=== PATIENT | male | born 1955 | race Caucasian/White ===

== ENCOUNTER 2019-11-02 07:10 | Outpatient (CLI) | payer OTHER, SELFPAY ==
[2019-11-02 07:58] LABS: Hematocrit 42.4 % (42.0-52.0); Hemoglobin 14.3 g/dL (14.0-18.0)
[2019-11-02 08:07] LABS: Hemoglobin A1C 13.5 % (<5.7)
[2019-11-02 08:09] LABS: Alanine Aminotransferase 22 U/L (4-50); Albumin Level 4.1 g/dL (3.5-5.1); Alkaline Phosphatase 107 U/L (38-126); Aspartate Amino Transferase 22 U/L (17-59); Bilirubin,Total 0.5 mg/dL (0.2-1.3); Blood Urea Nitrogen 11 mg/dL (9-20); Calcium 9.3 mg/dL (8.4-10.2); Carbon Dioxide 29 mmol/L (22-30); Chloride 101 mmol/L (98-107); Cholesterol 152 mg/dL (0-200); Estimated Glomerular Filt Rate > 60; Glucose 290 mg/dL (75-110); HDL Direct 26 mg/dL; Sodium 135 mmol/L (137-145); Triglycerides 141 mg/dL (<150)
[2019-11-02 08:19] LABS: LDL Cholesterol Direct 84 mg/dL
[2019-11-02 09:30] LABS: Creatinine Urine 133.1 mg/dL
[2019-11-02 09:34] LABS: MALB Creatinine Ratio 17.3 mg/g (0-30)
== END 2019-11-02 07:11 | disposition home or self-care (01) ==
PROVIDERS: PCP Internal Medicine; Visit Provider Internal Medicine
DX: E11.9 Type 2 diabetes mellitus without complications (principal); E78.5 Hyperlipidemia, unspecified; D64.9 Anemia, unspecified; I10 Essential (primary) hypertension; Z51.81 Encounter for therapeutic drug level monitoring; Z79.899 Other long term (current) drug therapy
CPT/HCPCS: 36415; 80053; 80061; 82043; 83036; 85014; 85018

== ENCOUNTER 2020-03-09 07:36 | Outpatient (CLI) | payer OTHER, SELFPAY ==
[2020-03-10 03:46] LABS: Alanine Aminotransferase 27 U/L (4-50); Alkaline Phosphatase 100 U/L (38-126); Anion Gap 9 mmol/L (8-16); Aspartate Amino Transferase 23 U/L (17-59); Bilirubin,Total 0.5 mg/dL (0.2-1.3); Blood Urea Nitrogen 11 mg/dL (9-20); Calcium 9.6 mg/dL (8.4-10.2); Carbon Dioxide 28 mmol/L (22-30); Chloride 100 mmol/L (98-107); Cholesterol 144 mg/dL (0-200); Estimated Glomerular Filt Rate > 60; Glucose 301 mg/dL (75-110); HDL Direct 26 mg/dL; Potassium 4.4 mmol/L (3.4-5.0); Sodium 137 mmol/L (137-145); Triglycerides 197 mg/dL (<150)
[2020-03-10 03:57] LABS: LDL Cholesterol Direct 80 mg/dL
== END 2020-03-09 07:37 | disposition home or self-care (01) ==
PROVIDERS: PCP Internal Medicine; Visit Provider Nurse Practitioner
DX: E78.2 Mixed hyperlipidemia (principal); E11.65 Type 2 diabetes mellitus with hyperglycemia
CPT/HCPCS: 36415; 80053; 80061; 83036

== ENCOUNTER 2020-06-29 07:23 | Outpatient (CLI) | payer OTHER, SELFPAY ==
[2020-06-29 08:00] LABS: Anion Gap 6 mmol/L (8-16); Blood Urea Nitrogen 15 mg/dL (9-20); Calcium 9.2 mg/dL (8.4-10.2); Carbon Dioxide 29 mmol/L (22-30); Chloride 104 mmol/L (98-107); Estimated Glomerular Filt Rate > 60; Glucose 149 mg/dL (75-110); Potassium 4.4 mmol/L (3.4-5.0); Sodium 139 mmol/L (137-145)
[2020-06-29 12:52] LABS: Cholesterol 121 mg/dL (0-200); HDL Direct 28 mg/dL; Triglycerides 94 mg/dL (<150)
[2020-06-29 13:01] LABS: LDL Cholesterol Direct 70 mg/dL
[2020-06-29 13:19] LABS: Prostate Specific Antigen 1.1 ng/mL (< OR = 4.0)
[2020-06-29 13:30] LABS: Alanine Aminotransferase 32 U/L (4-50); Albumin Level 4.3 g/dL (3.5-5.1); Alkaline Phosphatase 76 U/L (38-126); Aspartate Amino Transferase 35 U/L (17-59); Bilirubin,Total 0.5 mg/dL (0.2-1.3)
[2020-07-01 06:09] LABS: C-Peptide 0.99 ng/mL (0.80-3.85)
[2020-07-01 21:29] LABS: Glutamic acid decarboxylase AA <5 IU/mL (<5)
== END 2020-06-29 07:24 | disposition home or self-care (01) ==
PROVIDERS: PCP Internal Medicine; Referring Provider Internal Medicine; Visit Provider Internal Medicine Endocrinology, Diabetes & Metabolism
DX: E11.65 Type 2 diabetes mellitus with hyperglycemia (principal); E78.5 Hyperlipidemia, unspecified; Z12.5 Encounter for screening for malignant neoplasm of prostate; Z51.81 Encounter for therapeutic drug level monitoring; Z79.899 Other long term (current) drug therapy
CPT/HCPCS: 36415; 80048; 80061; 80076; 82607; 84153; 84681; 86341; G0103

== ENCOUNTER 2020-08-03 07:57 | Outpatient (CLI) | payer OTHER, SELFPAY ==
[2020-08-03 08:44] LABS: Hemoglobin A1C 7.6 % (<5.7)
== END 2020-08-03 07:58 | disposition home or self-care (01) ==
LOC: ANHLAB 07:59
PROVIDERS: PCP Internal Medicine; Visit Provider Internal Medicine
DX: E11.65 Type 2 diabetes mellitus with hyperglycemia (principal); E78.5 Hyperlipidemia, unspecified; Z12.5 Encounter for screening for malignant neoplasm of prostate; Z51.81 Encounter for therapeutic drug level monitoring; Z79.899 Other long term (current) drug therapy
CPT/HCPCS: 36415; 83036

== ENCOUNTER 2020-09-28 09:18 | Outpatient (RCR) | payer OTHER, SELFPAY | END 2020-12-15 11:59 | disposition home or self-care (01) | LOC: ANHDMC 09:18 | PROVIDERS: PCP Internal Medicine; Visit Provider Internal Medicine Endocrinology, Diabetes & Metabolism | DX: E11.9 Type 2 diabetes mellitus without complications (principal); Z71.89 Other specified counseling | CPT/HCPCS: G0108 ==

== ENCOUNTER 2020-11-30 08:05 | Outpatient (CLI) | payer OTHER, SELFPAY ==
[2020-11-30 08:42] LABS: Basophils Percent Auto 0.5 % (0.2-1.2); Eosinophils Absolute Auto 0.2 K/mm3 (0-0.3); Eosinophils Percent Auto 2.5 % (0-4.4); Hematocrit 43.5 % (42.0-52.0); Hemoglobin 14.4 g/dL (14.0-18.0); Immature Granulocyte Absolute 0.03 K/mm3 (0.00-0.031); Immature Granulocyte Percent A 0.4 % (0-0.5); Lymphocytes Absolute Auto 1.93 K/mm3 (0.9-3.2); Lymphocytes Percent Auto 24.5 % (18.3-44.2); Mean Corpuscular HGB Conc 33.1 g/dl (32-36); Mean Corpuscular Hemoglobin 29.2 pg (26-34); Mean Corpuscular Volume 88.2 fl (80-100); Mean Platelet Volume 10.4 fl (7.4-10.4); Monocytes Absolute Auto 0.8 K/mm3 (0.1-0.6); Monocytes Percent Auto 10.2 % (2.6-8.5); Neutrophils Absolute Auto 4.9 K/mm3 (1.3-6.7); Neutrophils Percent Auto 61.9 % (45.5-73.1); Platelet Count Result 243 k/mm3 (150-375); Red Blood Count 4.93 M/mm3 (4.6-6.20); Red Cell Distribution Width 13.3 % (11.5-14.5); White Blood Count 7.9 K/mm3 (4.5-10.0)
[2020-11-30 08:44] LABS: Alanine Aminotransferase 29 U/L (4-50); Albumin Level 4.2 g/dL (3.5-5.1); Alkaline Phosphatase 78 U/L (38-126); Anion Gap 8 mmol/L (8-16); Aspartate Amino Transferase 30 U/L (17-59); Bilirubin,Total 0.6 mg/dL (0.2-1.3); Blood Urea Nitrogen 13 mg/dL (9-20); Calcium 9.6 mg/dL (8.4-10.2); Carbon Dioxide 26 mmol/L (22-30); Chloride 105 mmol/L (98-107); Cholesterol 155 mg/dL (0-200); Estimated Glomerular Filt Rate > 60; Glucose 155 mg/dL (75-110); HDL Direct 31 mg/dL; Potassium 4.3 mmol/L (3.4-5.0); Sodium 139 mmol/L (137-145); Triglycerides 160 mg/dL (<150)
[2020-11-30 08:56] LABS: LDL Cholesterol Direct 73 mg/dL
[2020-11-30 09:00] LABS: Hemoglobin A1C 7.8 % (<5.7)
[2020-11-30 10:04] LABS: Creatinine Urine 201.5 mg/dL
[2020-11-30 10:09] LABS: MALB Creatinine Ratio 6.7 mg/g (0-30); Microalbumin Urine Random 13.6 mg/L (0-16.7)
== END 2020-11-30 08:06 | disposition home or self-care (01) ==
LOC: ANHLAB 08:08
PROVIDERS: PCP Internal Medicine; Visit Provider Nurse Practitioner
DX: E11.9 Type 2 diabetes mellitus without complications (principal); D64.9 Anemia, unspecified; E78.2 Mixed hyperlipidemia
CPT/HCPCS: 36415; 80053; 80061; 82043; 83036; 85025

== ENCOUNTER 2021-06-11 07:15 | Outpatient (CLI) | payer OTHER, SELFPAY ==
[2021-06-11 07:36] LABS: Alanine Aminotransferase 35 U/L (4-50); Albumin Level 4.1 g/dL (3.5-5.1); Alkaline Phosphatase 91 U/L (38-126); Anion Gap 7 mmol/L (8-16); Aspartate Amino Transferase 33 U/L (17-59); Bilirubin,Total 0.4 mg/dL (0.2-1.3); Blood Urea Nitrogen 11 mg/dL (9-20); Calcium 9.2 mg/dL (8.4-10.2); Carbon Dioxide 26 mmol/L (22-30); Chloride 104 mmol/L (98-107); Cholesterol 130 mg/dL (0-200); Estimated Glomerular Filt Rate > 60; Glucose 147 mg/dL (65-110); HDL Direct 26 mg/dL; Potassium 3.9 mmol/L (3.4-5.0); Sodium 137 mmol/L (137-145); Triglycerides 181 mg/dL (<150)
[2021-06-11 07:38] LABS: Hemoglobin A1C 10.2 % (<5.7)
[2021-06-11 07:48] LABS: LDL Cholesterol Direct 51 mg/dL
[2021-06-11 08:09] LABS: Prostate Specific Antigen 1.7 ng/mL (< OR = 4.0)
== END 2021-06-11 07:16 | disposition home or self-care (01) ==
PROVIDERS: PCP Internal Medicine; Visit Provider Nurse Practitioner
DX: E11.65 Type 2 diabetes mellitus with hyperglycemia (principal); Z79.4 Long term (current) use of insulin; N40.0 Benign prostatic hyperplasia without lower urinary tract symptoms; E78.2 Mixed hyperlipidemia
CPT/HCPCS: 36415; 80053; 80061; 83036; 84153

== ENCOUNTER 2022-02-11 07:22 | Outpatient (CLI) | payer MEDICARE, SELFPAY ==
[2022-02-11 09:27] LABS: Alanine Aminotransferase 24 U/L (6-50); Albumin Level 4.2 g/dL (3.5-5.1); Alkaline Phosphatase 93 U/L (38-126); Anion Gap 11 mmol/L (8-16); Aspartate Amino Transferase 26 U/L (17-59); Bilirubin,Total 0.8 mg/dL (0.2-1.3); Blood Urea Nitrogen 15 mg/dL (9-20); Carbon Dioxide 27 mmol/L (22-30); Chloride 101 mmol/L (98-107); Cholesterol 161 mg/dL (0-200); Estimated Glomerular Filt Rate > 60; Glucose 119 mg/dL (65-110); HDL Direct 33 mg/dL; Potassium 3.9 mmol/L (3.4-5.0); Sodium 139 mmol/L (137-145); Triglycerides 152 mg/dL (<150)
[2022-02-11 09:38] LABS: LDL Cholesterol Direct 78 mg/dL
== END 2022-02-11 07:23 | disposition home or self-care (01) ==
PROVIDERS: PCP Internal Medicine; Visit Provider Nurse Practitioner
DX: E78.5 Hyperlipidemia, unspecified (principal)
CPT/HCPCS: 36415; 80053; 80061

== ENCOUNTER 2022-08-17 07:24 | Outpatient (CLI) | payer MEDICARE, SELFPAY ==
[2022-08-17 08:19] LABS: Alanine Aminotransferase 28 U/L (6-50); Albumin Level 4.3 g/dL (3.5-5.1); Alkaline Phosphatase 91 U/L (38-126); Anion Gap 7 mmol/L (8-16); Aspartate Amino Transferase 32 U/L (17-59); Bilirubin,Total 0.7 mg/dL (0.2-1.3); Blood Urea Nitrogen 16 mg/dL (9-20); Calcium 9.2 mg/dL (8.4-10.2); Carbon Dioxide 26 mmol/L (22-30); Chloride 107 mmol/L (98-107); Cholesterol 152 mg/dL (0-200); Estimated Glomerular Filt Rate > 60; Glucose 134 mg/dL (65-110); HDL Direct 28 mg/dL; Sodium 140 mmol/L (137-145); Triglycerides 162 mg/dL (<150)
[2022-08-17 08:30] LABS: LDL Cholesterol Direct 86 mg/dL
[2022-08-17 08:47] LABS: Prostate Specific Antigen 1.7 ng/mL (< OR = 4.0)
== END 2022-08-17 07:25 | disposition home or self-care (01) ==
LOC: ANHLAB 07:28
PROVIDERS: PCP Nurse Practitioner Family; Visit Provider Nurse Practitioner
DX: Z12.5 Encounter for screening for malignant neoplasm of prostate (principal); E78.5 Hyperlipidemia, unspecified
CPT/HCPCS: 36415; 80053; 80061; 84153; G0103

== ENCOUNTER 2023-02-28 07:16 | Outpatient (CLI) | payer MEDICARE, SELFPAY ==
[2023-02-28 07:41] LABS: Alanine Aminotransferase 29 U/L (6-50); Albumin Level 4.3 g/dL (3.5-5.1); Alkaline Phosphatase 74 U/L (38-126); Anion Gap 9 mmol/L (8-16); Aspartate Amino Transferase 35 U/L (17-59); Bilirubin,Total 0.6 mg/dL (0.2-1.3); Blood Urea Nitrogen 17 mg/dL (9-20); Calcium 9.2 mg/dL (8.4-10.2); Carbon Dioxide 27 mmol/L (22-30); Chloride 103 mmol/L (98-107); Cholesterol 146 mg/dL (0-200); Estimated Glomerular Filt Rate > 60; Glucose 90 mg/dL (65-110); HDL Direct 33 mg/dL; Potassium 3.9 mmol/L (3.4-5.0); Sodium 139 mmol/L (137-145); Triglycerides 91 mg/dL (<150)
[2023-02-28 07:53] LABS: LDL Cholesterol Direct 80 mg/dL
== END 2023-02-28 07:17 | disposition home or self-care (01) ==
PROVIDERS: PCP Family Medicine; Visit Provider Nurse Practitioner
DX: E78.5 Hyperlipidemia, unspecified (principal)
CPT/HCPCS: 36415; 80053; 80061

== ENCOUNTER 2023-08-15 08:35 | Outpatient (CLI) | payer MEDICARE, SELFPAY ==
[2023-08-15 08:53] LABS: Hematocrit 45.9 % (42.0-52.0); Hemoglobin 15.2 g/dL (14.0-18.0); Mean Corpuscular HGB Conc 33.1 g/dl (32-36); Mean Corpuscular Hemoglobin 29.8 pg (26-34); Mean Platelet Volume 10.3 fl (7.4-10.4); Platelet Count Result 230 k/mm3 (150-375); Red Cell Distribution Width 13.3 % (11.5-14.5); White Blood Count 7.3 K/mm3 (4.5-10.0)
[2023-08-15 09:05] LABS: Alanine Aminotransferase 36 U/L (6-50); Albumin Level 4.6 g/dL (3.5-5.1); Alkaline Phosphatase 79 U/L (38-126); Anion Gap 9 mmol/L (8-16); Aspartate Amino Transferase 31 U/L (17-59); Bilirubin,Total 0.5 mg/dL (0.2-1.3); Blood Urea Nitrogen 14 mg/dL (9-20); Carbon Dioxide 24 mmol/L (22-30); Chloride 106 mmol/L (98-107); Cholesterol 142 mg/dL (0-200); Estimated Glomerular Filt Rate > 60; Glucose 140 mg/dL (65-110); HDL Direct 32 mg/dL; Potassium 4.1 mmol/L (3.4-5.0); Sodium 139 mmol/L (137-145); Triglycerides 133 mg/dL (<150)
[2023-08-15 09:24] LABS: LDL Cholesterol Direct 83 mg/dL
[2023-08-15 09:34] LABS: Prostate Specific Antigen 2.2 ng/mL (< OR = 4.0)
== END 2023-08-15 08:36 | disposition home or self-care (01) ==
PROVIDERS: PCP Family Medicine; Visit Provider Family Medicine
DX: D64.9 Anemia, unspecified (principal); E11.65 Type 2 diabetes mellitus with hyperglycemia; E78.2 Mixed hyperlipidemia; I10 Essential (primary) hypertension; N40.0 Benign prostatic hyperplasia without lower urinary tract symptoms; Z79.4 Long term (current) use of insulin; Z85.828 Personal history of other malignant neoplasm of skin; Z98.890 Other specified postprocedural states; Z12.5 Encounter for screening for malignant neoplasm of prostate; Z79.1 Long term (current) use of non-steroidal anti-inflammatories (NSAID)
CPT/HCPCS: 36415; 80053; 80061; 84153; 85027; G0103

== ENCOUNTER 2023-09-12 07:56 | Outpatient (CLI) | payer MEDICARE, SELFPAY ==
--- NOTE | ~2023-09-12 | XR_ITS ---
EXAMINATION: XR_ABD3V_CR DATE: 09/12/2023 08:20 INDICATION: Constipation. TECHNIQUE: Upright, left lateral decubitus, and supine views of the abdomen on 4 radiographs were obt ained. COMPARISON: None. FINDINGS: There are no dilated loops of bowel. There is a small volume of stool in the colon. No free intraperitoneal gas. IMPRESSION: 1. Normal bowel gas pattern. Reviewed, dictated and finalized at location A.
== END 2023-09-12 07:57 | disposition home or self-care (01) ==
PROVIDERS: PCP Nurse Practitioner; Visit Provider Family Medicine
DX: K59.00 Constipation, unspecified (principal)
CPT/HCPCS: 74021

== ENCOUNTER 2024-01-29 08:04 | Emergency (ER) | payer MEDICARE, SELFPAY ==
--- NOTE | 2024-01-29 08:09 | ED.SKABFB ---
HPI - Skin/Abscess/Foreign Bdy General Chief complaint: Skin/Abscess/Foreign Body Stated complaint: Right arm rash Source: patient, RN notes reviewed and old records reviewed Mode of arrival: ambulatory Limitations: no limitations History of Present Illness HPI narrative: 68-year-old male with a history of hypertension diabetes presents to the [facility] with complaints of a rash to the right forearm started on Monday, 5 days ago reports using a topical salve. Since states that it is spread to the right lower ribs and abdomen area. Patient is red, patient describes is itchy. No increased warmth, mild inflammation to the area No fluctuance Centers Onset (ago): day(s) (5) Treatments prior to arrival: OTC topical medication Related Data Home Medications Medication Instructions Recorded Confirmed multivitamin (Daily Multi-Vitamin 1 tablet PO DAILY 08/10/21 01/29/24 tablet) metformin 500 mg tablet,extended See Rx Instructions PO DAILY 09/12/23 01/29/24 release 24 hr Allergies Allergy/AdvReac Type Severity Reaction Status Date / Time No Known Allergies Allergy Verified 01/29/24 08:05 Review of Systems Review of Systems: All systems reviewed & are unremarkable except as noted in HPI and below Constitutional: Constitutional: Reports no additional constitutional complaints Eyes: Eyes: Reports no additional eye complaints ENT: Reports system reviewed and no additional complaints, except as documented Cardiovascular: Cardiovascular: Reports no additional cardiovascular complaints, Denies chest pain and Denies dyspnea Respiratory: Respiratory: Reports no additional respiratory complaints, Denies chest congestion, Denies cough and Denies dyspnea Gastrointestinal: Gastrointestinal: Reports no additional gastrointestinal complaints, Denies abdominal pain, Denies nausea and Denies vomiting Musculoskeletal: Musculoskeletal: Reports no additional musculoskeletal complaints Integumentary/Breasts: Skin/Breast: Reports as per HPI and Reports rash Neurologic: Reports system reviewed and no additional complaints, except as documented Psychiatric: Psychiatric: Reports no additional psychiatric complaints Allergic/Immunologic: Allergic/Immunologic: Reports no additional allergic/immunologic complaints PMFSH Past Medical History Medical History Anemia, unspecified Back fracture Basal cell carcinoma Enlarged prostate without lower urinary tract symptoms (luts) Hypertension Mixed hyperlipidemia Pancreatic abscess Type 2 diabetes mellitus with hyperglycemia, with long-term current use of insulin Surgical History Surgical History H/O knee surgery Status post Mohs surgery for basal cell carcinoma Family History Family History Mother Family history of malignant neoplasm of breast in first degree relative, Onset Age: 71 Father Family history of throat cancer, Onset Age: 59 Social History Social History Smoking status: Never smoker Second hand tobacco smoke exposure: No Alcohol intake: never Substance use: never Substance use type: does not use Do You Feel Safe in your Home?: Yes Lack of Transportation: No Lack of Food: Never True Current Housing: I Have Housing Concerned About Future Housing: No Difficulty Paying Gas/Electric Bills: No Difficulty Paying for Meds: No Currently Unemployed: No Education: High School Diploma/GED Living arrangements: with family Additional living arrangements comments: - [facility] Occupation/Education: occupation Additional occupation/education comments: [employer] Gender identity (if verbalized by the patient): Male Comments At the time of my signature, I reviewed and agree with the nursing past medical, surgical, social, and
[2024-01-29 08:14] VITALS: BP 124/68; PULSE 71; RESP 20; TEMP 36.3; O2SAT 100
[2024-01-29 08:23] LABS: Glucose Point of Care 162 mg/dl (65-105)
== END 2024-01-29 08:26 | disposition home or self-care (01) ==
PROVIDERS: Emergency Provider Nurse Practitioner; PCP Family Medicine
DX: L25.9 Unspecified contact dermatitis, unspecified cause (principal); N40.0 Benign prostatic hyperplasia without lower urinary tract symptoms; I10 Essential (primary) hypertension; E78.2 Mixed hyperlipidemia; E11.9 Type 2 diabetes mellitus without complications; Z79.84 Long term (current) use of oral hypoglycemic drugs; Z85.828 Personal history of other malignant neoplasm of skin
CPT/HCPCS: 82948; 99213; G0463

== ENCOUNTER 2024-04-10 06:45 | Outpatient (CLI) | payer MEDICARE, SELFPAY ==
[2024-04-10 07:27] LABS: Hematocrit 45.2 % (42.0-52.0); Hemoglobin 15.1 g/dL (14.0-18.0); Mean Corpuscular HGB Conc 33.4 g/dl (32-36); Mean Corpuscular Hemoglobin 30.6 pg (26-34); Mean Corpuscular Volume 91.7 fl (80-100); Mean Platelet Volume 10.3 fl (7.4-10.4); Platelet Count Result 237 k/mm3 (150-375); Red Blood Count 4.93 M/mm3 (4.6-6.20); Red Cell Distribution Width 13.3 % (11.5-14.5); White Blood Count 7.4 K/mm3 (4.5-10.0)
[2024-04-10 07:47] LABS: Alanine Aminotransferase 32 U/L (6-50); Albumin Level 4.3 g/dL (3.5-5.1); Alkaline Phosphatase 81 U/L (38-126); Anion Gap 10 mmol/L (4-12); Aspartate Amino Transferase 30 U/L (17-59); Bilirubin,Total 0.6 mg/dL (0.2-1.3); Blood Urea Nitrogen 23 mg/dL (9-20); Calcium 9.8 mg/dL (8.4-10.2); Carbon Dioxide 24 mmol/L (22-30); Chloride 104 mmol/L (98-107); Estimated Glomerular Filt Rate > 60; Glucose 149 mg/dL (65-110); Potassium 4.4 mmol/L (3.4-5.0); Sodium 138 mmol/L (137-145)
[2024-04-10 09:41] LABS: Creatinine Urine 103.6 mg/dL
[2024-04-10 09:42] LABS: Free T4 Free Thyroxine 0.91 ng/mL (0.78-2.19); Vitamin D 25 Hydroxy 36.9 ng/mL
[2024-04-10 09:46] LABS: MALB Creatinine Ratio 7.5 mg/g (0-30); Microalbumin Urine Random 7.8 mg/L (0-16.7)
== END 2024-04-10 06:46 | disposition home or self-care (01) ==
PROVIDERS: PCP Family Medicine; Visit Provider Nurse Practitioner Family
DX: E11.65 Type 2 diabetes mellitus with hyperglycemia (principal); E78.2 Mixed hyperlipidemia; I10 Essential (primary) hypertension; Z79.4 Long term (current) use of insulin
CPT/HCPCS: 36415; 80053; 82043; 82306; 82607; 84439; 84443; 85027

== ENCOUNTER 2024-05-03 07:09 | Outpatient (CLI) | payer MEDICARE, SELFPAY ==
[2024-05-03 08:17] LABS: Free T4 Free Thyroxine 0.85 ng/mL (0.78-2.19)
[2024-05-06 14:57] LABS: Thyroid Peroxidase Antibodies 3 IU/mL (<9)
== END 2024-05-03 07:10 | disposition home or self-care (01) ==
LOC: ANHLAB 07:10
PROVIDERS: PCP Family Medicine; Visit Provider Family Medicine
DX: R79.89 Other specified abnormal findings of blood chemistry (principal); I10 Essential (primary) hypertension
CPT/HCPCS: 36415; 84439; 84443; 84445

== ENCOUNTER 2024-10-11 07:04 | Outpatient (CLI) | payer MEDICARE, SELFPAY ==
--- OUTSIDE RECORDS SUMMARY | 2024-10-11 07:08 | XMS_ITS | Encounter Summary ---
Author Organization [facility] Address [address] [place] [address] Care Team Providers Care Corpsman Name Role Phone Binh Trimble MD Primary Care Provider [phone] Encounter Details Date Type Department Care Team (Late st Contact Info) Description 11/12/[address] [facility] Care DermPath Lab [address] [place] [address] Leopoldo Gallardo MD [address] [place], [place] [id number] Social History Tobacco Use Types Packs/Day Years Used Date Smoking Tobacco: Never Smokeless Tobacco: Current Alcohol Use Standard Drinks/Week Comments No 0 (1 standard drink = 0.6 oz pur e alcohol) Sex and Gender Information Value Date Recorded Sex Assigned at Not on file Legal Sex Male 6:36 PM DIGITAL CONTENT SPECIALIST Gender Identity Not on file Sexual Orientation Not on file documented as of this encounter Plan of Treatment Not on file documented as of this encounter Procedures Procedure Name Priority Date/Time Associated Diagnosis Comments DERMATOPATHOLOGY Routine 11/10/2020 3:33 AM CDT documented in this encounter Results * DERMATOPATHOLOGY (11/10/2020 3:33 AM CDT) Case Report Dermatopathology Report Case: [id number] Authorizing Provider: Leopoldo Gallardo MD Collected: 11/10/2020 03:33 AM Ordering Location: [facility] Derm[facility] Lab Received: 11/12/2020 06:19 AM Pathologist: Cherelle Montano MD Specimen: Skin, mid back 2:31 PM CDT DERMATOPATHOLOGY LABORATORY Final Diagnosis Specimen A. SKIN, mid back: BASAL CELL CARCINOMA, NODULAR TYPE (C44.519) 2:31 PM CDT DERMATOPATHOLOGY LABORATORY Clinical History Nodule R/O BCC. 2:31 PM CDT DERMATOPATHOLOGY LABORATORY Gross Description Specimen A: Received is one formalin filled container labeled with the patient's name and designated mid back. The specimen consists of a shave biopsy measuring [id number]. Jar 0. 2:31 PM CDT DERMATOPATHOLOGY LABORATORY Microscopic Description Specimen A. SKIN, mid back: Within the dermis there are aggregates of basaloid cells with a high nuclear to cytoplasmic ratio and peripheral palisading. 2:31 PM CDT DERMATOPATHOLOGY LABORATORY Disclaimer An external and internal positive and negative controls are appropriate for the histochemical, immunohistochemical and immunofluorescence stain(s) in this case (if any), except where stated explicitly. The performance characteristics of the stain(s) cited in this report were developed and its performance characteristic determined by the Dermatopathology Laboratory at [facility], directed by Dr. Rcahel Bazzi. These tests need not be, and therefore are not, approved by the [place] Food and Drug Administration. The tests are used for clinical purposes. Billing Codes Specimen Charges Stain Charges 91663 1 2:31 PM CDT DERMATOPATHOLOGY LABORATORY Embedded Images 2:31 PM CDT DERMATOPATHOLOGY LABORATORY Pathology/Cytolo gy TISSUE SPECIMEN FROM SKIN / Unknown 11/10/2020 3:33 AM CDT 11/12/2020 6:19 AM CDT us Leopoldo Gallardo MD LAB - PATHOLOGY/CYTOLOGY ORDERAB LES Final Result DERMATOPATHOLOGY LABORATORY [facility] - Department of Dermatology [address], [address] [phone] documented in this encounter Visit Diagnoses Not on filedocumented in this encounter Care Teams Corpsman Relationship Specialty Start Date End Date Binh Trimble MD [address] [facility] [address] [place] [address] PCP - General 03/07/13 documented as of this encounter
--- OUTSIDE RECORDS SUMMARY | 2024-10-11 07:08 | XMS_ITS | Clinical Summary ---
Author Organization [facility] Address [address] [place] [address] Care Team Providers Care Advertising Sales Representative Name Role Phone None, Provider Primary Care Provider Unavaila ble Allergies No known active allergies Medications No known medications Social History Tobacco Use Types Packs/Day Years Used Date Smoking Tobacco: Never Assessed Sex and Gender Information Value Date Recorded Sex Assigned at Not on file Legal Sex Male 7:58 PM CDT Gender Identity Not on file Sexual Orientation Not on file Last Filed Vital Signs Vital Sign Reading Time Taken Comments Blood Pressure 138/75 09/30/2023 9:03 PM CDT Pulse 86 09/30/2023 9:03 PM CDT Temperature 36.6 C (97.9 F) 09/30/2023 9:03 PM CDT Respiratory Rate 19 09/30/2023 9:03 PM CDT Oxygen Saturation 100% 09/30/2023 9:03 PM CDT Inhaled Oxygen Concentration - - Weight 84.8 kg (187 lb) 09/30/2023 9:03 PM CDT Height 182.9 cm (6') 09/30/2023 9:03 PM CDT Body Mass Index 25.36 09/30/2023 9:03 PM CDT Plan of Treatment Health Maintenance Due Date Last Done Comments Colorectal Cancer Screening Colonoscopy (10 Years) 1956 Hepatitis C 1974 Zoster Vaccines (1 of 2) 2006 Pneumococcal Vaccine: 50+ Years (2 of 2 - PCV) 01/23/2014 01/23/2013 Annual Medicare Wellness Visit 2021 DTaP, Tdap and Td Vaccines ( 2 - Td or Tdap) 01/23/2023 01/23/2013 COVID-19 Vaccine (4 - 2023-2 5 season) 2024 04/19/2023, 09/25/2020, 08/28/2020 RSV Immunization or 60+ Years (1 - 1-dose 75+ series) 2031 Meningococcal B Vaccine Aged Out No l onger eligible based on patient's age to complete this topic Meningococcal Vaccine Aged Out No alejandra keyon eligible based on patient's age to complete this topic RSV Immunizations Under 20 Months Aged Out No longer eligible b ased on patient's age to complete this topic Procedures Procedure Name Priority Date/Time Associated Diagnosis Comments COLONOSCOPY Routine VFX ARTIST from Last 3 Months or Most Recently Relevant to Health Maintenance Results * Colonoscopy ( VFX ARTIST) Narrative [facility] TO EPIC CONVERSION - VFX ARTIST Documented hx of procedure Procedure Note , Generic MD Allyn - 04/15/2018 Documented hx of procedure Generic Conversion Md JACOBO GI PROCEDURE ORDERABLES Final Result [employer] TO EPIC CONVERSION from Last 3 Months or Most Recently Relevant to Health Maintenance Insurance [employer] Care Teams Advertising Sales Representative Relationship Specialty Start Date End Date None, Provider, PCP - General UNKNOWN PHYSICIAN SPECIALTY 09/30/23
--- OUTSIDE RECORDS SUMMARY | 2024-10-11 07:08 | XMS_ITS | Encounter Summary ---
Author Organization [facility] Address [address] [place] [address] Care Team Providers Care Home Housekeeper Name Role Phone Binh Trimble MD Primary Care Provider [phone] Encounter Details Date Type Department Care Team (Late st Contact Info) Description 08/30/2023 Lab Requisition [facility] - DermPath Lab [address] [facility] [place] [address] Leopoldo Gallardo MD [address] [place] [address] Social History Tobacco Use Types Packs/Day Years Used Date Smoking Tobacco: Never Smokeless Tobacco: Current Alcohol Use Standard Drinks/Week Comments No 0 (1 standard drink = 0.6 oz pur e alcohol) Sex and Gender Information Value Date Recorded Sex Assigned at Not on file 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 MUSIC Gender Identity Not on file Sexual Orientation Not on file documented as of this encounter Plan of Treatment Not on file documented as of this encounter Procedures Procedure Name Priority Date/Time Associated Diagnosis Comments DERMATOPATHOLOGY Routine 08/30/2023 12:0 0 AM CDT documented in this encounter Results * DERMATOPATHOLOGY (08/30/2023 12:00 AM CDT) Case Report Dermatopathology Report Case: [id number] Authorizing Provider: Leopoldo Gallardo MD Collected: 08/30/2023 12:00 AM Ordering Location: [facility] - Received: 08/30/2023 04:01 PM DermPath Lab Pathologist: Argenis Montano MD Specimen: Skin, left lateral upper arm 12:06 PM [facility] DERMATOPATHOLOGY LABORATORY Amended Report Due to a clerical error, the date of collection is changed from 08/29/23 to 08/30/23. 12:06 PM [facility] DERMATOPATHOLOGY LABORATORY Final Diagnosis Specimen A. SKIN, left lateral upper arm: INFILTRATIVE CARCINOMA; PRESENT AT SAMPLED MARGINS (C44.99) (see microscopic description and comment) 12:06 PM [facility] DERMATOPATHOLOGY LABORATORY Amendment electronically signed by Argenis Montano MD on 09/11/2023 at 12:06 PM Clinical History BCC Bx Site. Prior biopsy. 12:06 PM [facility] DERMATOPATHOLOGY LABORATORY Gross Description Specimen A: Received is one formalin filled container labeled with the patient's name and designated left lateral upper arm. The specimen consists of a curettage and desiccation biopsy measuring 12x8x1, 5x3x1 mm. Jar 0+. 12:06 PM [facility] DERMATOPATHOLOGY LABORATORY Microscopic Description Specimen A. SKIN, left lateral upper arm: Within the epidermis and dermis, there are angulated nests of epithelial cells with atypical, pleomorphic nucle, embedded within a fibrotic and inflamed stroma. BerEp4 is negative. Additional deeper sections were obtained and reviewed. COMMENT: The patient's prior specimen ([id number]) from this site was additionally reviewed and the findings are unequivocally that of basal cell carcinoma. The present specimen displays an infiltrative and keratinizing morphology which may represent metaplastic changes within the basal cell carcinoma due to recent biopsy/procedure. However, an infiltrative basal cell component, or collision with an infiltrative squamous cell carcinoma, cannot be excluded. Re-excision of this lesion is recommended to ensure full histopathologic evaluation. This case has been reviewed by Dr. Cherelle Montano who concurs with the diagnosis. 12:06 PM [facility] DERMATOPATHOLOGY LABORATORY Disclaimer An external and internal positive and negative controls are appropriate for the histochemical, immunohistochemical and immunofluorescence stain(s) in this case (if any), except where stated explicitly. The performance characteristics of the stain(s) cited in this report were developed and its performance characteristic determined by the Dermatopathology Laboratory at [facility], directed by Dr. Rachel Bazzi. These tests need not be, and therefore are not, approved by the [place] Food and Drug Administration. The tests are used for clinical purposes. Billing Codes Specimen Charges Stain Charges 76832 1 50766 1 4 12:06 PM CDT DERMATOPATHOLOGY LABORATORY Embedded Images 4 12:06 PM CDT DERMATOPATHOLOGY LABORATORY Pathology/Cytolog y TISSUE SPECIMEN FROM SKIN / Unknown 08/30/2023 08/30/2023 4:01 PM CDT Leopoldo Gallardo MD LAB - PATHOLOGY/CYTOLOGY ORDERAB LES Edited Result - Final DERMATOPATHOLOGY LABORATORY [facility] - Department of Dermatology [facility] Medicine [address] [place] [address], [address] [phone] documented in this encounter Visit Diagnoses Not on filedocumented in this encounter Care Teams Home Housekeeper Relationship Specialty Start Date End Date Binh Trimble MD [address] [facility] [address] [place] [address] PCP - General 03/07/13 documented as of this encounter
--- OUTSIDE RECORDS SUMMARY | 2024-10-11 07:08 | XMS_ITS | Clinical Summary ---
Author Organization [facility] Address [address] [place] [address] Care Team Providers Care Dam Operator Name Role Phone Binh Trimble MD Primary Care Provider [phone] Source Comments [facility],non-owned Affiliates and Associated Physician Practices is amultiple site organization consisting of ambulatory clinics and hospital sitesin [place], [place], [place] and [place]. This disclosure is being madepursuant to the Care Everywhere program and may not contain all information available regarding this patient. Last updated 18.[facility] Active Problems Problem Noted Date Diagnosed Date Abnormal levels of other serum enzymes 4 Family History Medical History Relation Name Comments Cancer Father Esophagus; Stat us: Cancer Mother Lung/Brain; Sta tus: None Known Sister Status: Alive Relation Name Status Comments Father Mother Sister Social History Tobacco Use Types Packs/Day Years Used Date Smoking Tobacco: Never Smokeless Tobacco: Current Alcohol Use Standard Drinks/Week Comments No 0 (1 standard drink = 0.6 oz pur e alcohol) Sex and Gender Information Value Date Recorded Sex Assigned at Not on file Legal Sex Male 6:36 PM GRAIN BROKER Gender Identity Not on file Sexual Orientation Not on file Last Filed Vital Signs Vital Sign Reading Time Taken Comments Blood Pressure 179/96 07/08/2013 11:20 AM GRAIN BROKER Pulse 67 07/08/2013 11:20 AM GRAIN BROKER Temperature 36.6 C (97.9 F) 07/08/2013 11:20 AM GRAIN BROKER Respiratory Rate 18 07/08/2013 11:2 0 AM GRAIN BROKER Oxygen Saturation - - Inhaled Oxygen Concentration - - Weight 107.9 kg (237 lb 12.8 oz) 2013 11:20 AM GRAIN BROKER Height 182.9 cm (6') 07/08/2013 11:20 AM GRAIN BROKER Body Mass Index 32.25 07/08/2013 11:20 AM GRAIN BROKER Plan of Treatment Health Maintenance Due Date Last Done Comments COLOGUARD (AGES 45-75) - COL ON CA SCREENING 1956 COLON MONITORING 1956 COLONOSCOPY - COLON CA SCREENING 1956 CT COLONOGRAPHY - COLON CA SCREENING 1955 Colorectal Cancer Screening 1956 FIT - COLON CA SCREENING 1956 FLEX SIG - COLON CA SCREENING 1956 LIPID TESTING 1956 DTAP/TDAP/TD VACCINES (1 - Tdap) 1975 PNEUMOCOCCAL VACCINE 50+ (1 of 1 - PCV) 2006 ZOSTER VACCINE (1 of 2) 2006 COVID-19 VACCINE (1 - 2023-2 5 season) 2024 DEPRESSION SCREENING 06/12/2024 MEDICARE AWV CALENDAR YEAR 2024 INFLUENZA VACCINE (Season Ended) 2025 Respiratory Syncytial Virus (RSV) Vaccine Pt: or over 60 yrs (1 - 1-dose 75+ series) 2031 HEPATITIS C SCREENING Completed 07/08/2013 , 07/08/2013 HEPATITIS B VACCINE Aged Out No longe r eligible based on patient's age to complete this topic HIB VACCINE Aged Out No longer eligi ble based on patient's age to complete this topic HPV VACCINE Aged Out No longer eligi ble based on patient's age to complete this topic MENINGOCOCCAL (Group B) VACCINE SHARED DECISION-MAKING Aged Out No longer eligible based on patient's age to complete this topic MENINGOCOCCAL GROUPS A/C/Y/W VACCINE Aged Out No longer eligible b ased on patient's age to complete this topic Procedures Procedure Name Priority Date/Time Associated Diagnosis Comments HEPATITIS C ANTIBODY Routine 07/08/2013 2:18 PM GRAIN BROKER from Last 3 Months or Most Recently Relevant to Health Maintenance Results * HEPATITIS C ANTIBODY (07/08/2013 2:18 PM GRAIN BROKER) Hepatitis C Antibody NONREACTIVE NONREACTIVE [facility] Comment: Anti-HCV screen indicates no serologic evidence of past or current infection with Hepatitis C Virus. Patients with unexplained liver disease who are immunocompromised or suspected of having acute Hepatitis C infection may benefit from Nucleic Acid Test (LOPEZ) for Hepatitis C Viral RNA to confirm Hepatitis C status. 07/08/2013 2:18 PM GRAIN BROKER 07/08/2013 3:33 PM GRAIN BROKER us Tahir Razo MD LAB - CHEMISTRY ORDERABLES Jigna tobar Result [address] [phone] from Last 3 Months or Most Recently Relevant to Health Maintenance Insurance AETNA AETNA MEDICARE [facility] Care Teams Dam Operator Relationship Specialty Start Date End Date Binh Trimble MD [address] [facility] [address] [facility] [address] [place] [address] PCP - General 03/07/13
--- OUTSIDE RECORDS SUMMARY | 2024-10-11 07:08 | XMS_ITS | Encounter Summary ---
Author Organization [facility] Address [address] [facility] [place] [address] Care Team Providers Care Dog Behaviorist Name Role Phone Binh Trimble MD Primary Care Provider [phone] Encounter Details Date Type Department Care Team (Late st Contact Info) Description 08/17/2023 Lab Requisition [facility] - DermPath Lab [address] [facility] [place] [address] Leopoldo Gallardo MD [address] [place] [address] Social History Tobacco Use Types Packs/Day Years Used Date Smoking Tobacco: Never Smokeless Tobacco: Current Alcohol Use Standard Drinks/Week Comments No 0 (1 standard drink = 0.6 oz pur e alcohol) Sex and Gender Information Value Date Recorded Sex Assigned at Not on file Legal Sex Male 6:36 PM SEMICONDUCTOR WAFERS SAW OPERATOR Gender Identity Not on file Sexual Orientation Not on file documented as of this encounter Plan of Treatment Not on file documented as of this encounter Procedures Procedure Name Priority Date/Time Associated Diagnosis Comments DERMATOPATHOLOGY Routine 08/16/2023 3:33 AM SEMICONDUCTOR WAFERS SAW OPERATOR documented in this encounter Results * DERMATOPATHOLOGY (08/16/2023 3:33 AM SEMICONDUCTOR WAFERS SAW OPERATOR) Case Report Dermatopathology Report Case: [id number] Authorizing Provider: Leopoldo Gallardo MD Collected: 08/16/2023 03:33 AM Ordering Location: [facility] - Received: 08/17/2023 08:47 AM DermPath Lab Pathologist: Cherelle Montano MD Specimen: Skin, left lat upper arm 12:34 PM [facility] DERMATOPATHOLOGY LABORATORY Final Diagnosis Specimen A. SKIN, left lat upper arm: BASAL CELL CARCINOMA, NODULAR TYPE (C44.619) APPROXIMATES MARGIN (see microscopic description) 12:34 PM SEMICONDUCTOR WAFERS SAW OPERATOR DERMATOPATHOLOGY LABORATORY Clinical History R/O BCC. Check Margin 12:34 PM SEMICONDUCTOR WAFERS SAW OPERATOR DERMATOPATHOLOGY LABORATORY Gross Description Specimen A: Received is one formalin filled container labeled with the patient's name and designated left lat upper arm. The specimen consists of a shave biopsy measuring 8x6x1 mm. The margin is inked green. Jar 0. 12:34 PM SEMICONDUCTOR WAFERS SAW OPERATOR DERMATOPATHOLOGY LABORATORY Microscopic Description Specimen A. SKIN, left lat upper arm: Within the dermis there are aggregates of basaloid cells with a high nuclear to cytoplasmic ratio and peripheral palisading. This lesion approximates the margin of the specimen. 12:34 PM [facility] DERMATOPATHOLOGY LABORATORY Disclaimer An external and internal positive and negative controls are appropriate for the histochemical, immunohistochemical and immunofluorescence stain(s) in this case (if any), except where stated explicitly. The performance characteristics of the stain(s) cited in this report were developed and its performance characteristic determined by the Dermatopathology Laboratory at [facility], directed by Dr. Rachel Bazzi. These tests need not be, and therefore are not, approved by the [place] Food and Drug Administration. The tests are used for clinical purposes. Billing Codes Specimen Charges Stain Charges 61388 1 12:34 PM [facility] DERMATOPATHOLOGY LABORATORY Embedded Images 12:34 PM [facility] DERMATOPATHOLOGY LABORATORY Pathology/Cytolo gy TISSUE SPECIMEN FROM SKIN / Unknown 08/16/2023 3:33 AM SEMICONDUCTOR WAFERS SAW OPERATOR 08/17/2023 8:47 AM SEMICONDUCTOR WAFERS SAW OPERATOR us Leopoldo Gallardo MD LAB - PATHOLOGY/CYTOLOGY ORDERAB LES Final Result DERMATOPATHOLOGY LABORATORY [facility] - Department of Dermatology Specialized Medicine [facility] [facility], 3rd Floor [address] [phone] documented in this encounter Visit Diagnoses Not on filedocumented in this encounter Care Teams Dog Behaviorist Relationship Specialty Start Date End Date Binh Trimble MD [address] [facility] [address] [place] [address] PCP - General 03/07/13 documented as of this encounter
--- OUTSIDE RECORDS SUMMARY | 2024-10-11 07:08 | XMS_ITS | Encounter Summary ---
Author Organization [facility] Address [address] [place] [address] Care Team Providers Care Burglar Alarm Operator Name Role Phone Binh Trimble MD Primary Care Provider [phone] Encounter Details Date Type Department Care Team (Late st Contact Info) Description 12/26/2023 Lab Requisition [facility] - DermPath Lab [address] [facility], [place] [address] Leopoldo Gallardo MD [address] [place] [address] Social History Tobacco Use Types Packs/Day Years Used Date Smoking Tobacco: Never Smokeless Tobacco: Current Alcohol Use Standard Drinks/Week Comments No 0 (1 standard drink = 0.6 oz pur e alcohol) Sex and Gender Information Value Date Recorded Sex Assigned at Not on file 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 Gender Identity Not on file Sexual Orientation Not on file documented as of this encounter Plan of Treatment Not on file documented as of this encounter Procedures Procedure Name Priority Date/Time Associated Diagnosis Comments DERMATOPATHOLOGY Routine 12/25/2023 12:0 0 AM CDT documented in this encounter Results * DERMATOPATHOLOGY (12/25/2023 12:00 AM CDT) Case Report Dermatopathology Report Case: [id number] Authorizing Provider: Leopoldo Gallardo MD Collected: 12/25/2023 12:00 AM Ordering Location: [facility] - Received: 12/26/2023 06:14 PM DermPath Lab Pathologist: Blayne Bazzi MD Specimens: A) - Skin, right posterior shoulder medial B) - Skin, right posterior shoulder lateral 2:15 PM [facility] DERMATOPATHOLOGY LABORATORY Final Diagnosis Specimen A. SKIN, right posterior shoulder medial: HEALING SKIN CHANGES (L90.5) Specimen B. SKIN, right posterior shoulder lateral: HEALING SKIN CHANGES (L90.5) 2:15 PM T DERMATOPATHOLOGY LABORATORY Clinical History A-B:BCC bx proven Check margins 2:15 PM T DERMATOPATHOLOGY LABORATORY Gross Description Specimen A: Received is one formalin filled container labeled with the patient's name and designated right posterior shoulder medial. The specimen consists of a shave biopsy measuring 10x7x4 mm. Jar 0. Specimen B: Received is one formalin filled container labeled with the patient's name and designated right posterior shoulder lateral. The specimen consists of a shave biopsy measuring 9x7x4 mm. Jar 0. 2:15 PM T DERMATOPATHOLOGY LABORATORY Microscopic Description Specimen A. SKIN, right posterior shoulder medial: There is epidermal hyperplasia beneath which there are vascular proliferation, fibroblasts, and an edematous stroma. Specimen B. SKIN, right posterior shoulder lateral: There is epidermal hyperplasia beneath which there are vascular proliferation, fibroblasts, and an edematous stroma. 2:15 PM T DERMATOPATHOLOGY LABORATORY Disclaimer An external and internal positive and negative controls are appropriate for the histochemical, immunohistochemical and immunofluorescence stain(s) in this case (if any), except where stated explicitly. The performance characteristics of the stain(s) cited in this report were developed and its performance characteristic determined by the Dermatopathology Laboratory at [facility], directed by Dr. Rachel Bazzi. These tests need not be, and therefore are not, approved by the [place] Food and Drug Administration. The tests are used for clinical purposes. Billing Codes Specimen Charges Stain Charges 95247 15481 1 1 2:15 PM CDT DERMATOPATHOLOGY LABORATORY Embedded Images 2:15 PM CDT DERMATOPATHOLOGY LABORATORY Pathology/Cytology TISSUE SPECIMEN FROM SKIN / Unknown 12/25/2023 12/26/2023 6:14 PM CDT Miscellaneous samples (specimen) TISSUE SPECIMEN FROM SKIN / Unknown 12/25/2023 12/26/2023 6:14 PM CDT Leopoldo Gallardo MD LAB - PATHOLOGY/CYTOLOGY ORDERAB LES Final Result DERMATOPATHOLOGY LABORATORY [facility] - Department of Dermatology [facility] Specialized Medicine [address] [place] [address], [address] [phone] documented in this encounter Visit Diagnoses Not on filedocumented in this encounter Care Teams Burglar Alarm Operator Relationship Specialty Start Date End Date Binh Trimble MD [address] [facility] [address] [place] [phone] PCP - General 03/07/13 documented as of this encounter
--- OUTSIDE RECORDS SUMMARY | 2024-10-11 07:08 | XMS_ITS | Encounter Summary ---
Author Organization [facility] Address [address] [facility] [place] [address] Care Team Providers Care Glaze Handler Name Role Phone Binh Trimble MD Primary Care Provider [phone] Encounter Details Date Type Department Care Team (Late st Contact Info) Description 05/25/2022 Lab Requisition [facility] Care DermPath Lab [address] [place] [address] Leopoldo Gallardo MD [address] [place] [address] Social History Tobacco Use Types Packs/Day Years Used Date Smoking Tobacco: Never Smokeless Tobacco: Current Alcohol Use Standard Drinks/Week Comments No 0 (1 standard drink = 0.6 oz pur e alcohol) Sex and Gender Information Value Date Recorded Sex Assigned at Not on file 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 Gender Identity Not on file Sexual Orientation Not on file documented as of this encounter Plan of Treatment Not on file documented as of this encounter Procedures Procedure Name Priority Date/Time Associated Diagnosis Comments DERMATOPATHOLOGY Routine 05/23/2022 12:0 0 AM WAISTLINE JOINER OVERLOCK documented in this encounter Results * DERMATOPATHOLOGY (05/23/2022 12:00 AM WAISTLINE JOINER OVERLOCK) Case Report Dermatopathology Report Case: [id number] Authorizing Provider: Leopoldo Gallardo MD Collected: 05/23/2022 12:00 AM Ordering Location: [facility] Received: 05/25/2022 06:04 AM Pathologist: Cherelle Montano MD Specimen: Skin, right lat upper arm 3:06 PM [facility] DERMATOPATHOLOGY LABORATORY Final Diagnosis Specimen A. SKIN, right lat upper arm: BASAL CELL CARCINOMA (C44.612) NOT PRESENT AT MARGIN DERMAL SCAR (L90.5) (see microscopic description) 3:06 PM [facility] DERMATOPATHOLOGY LABORATORY Clinical History BCC BX SAC. Check Margins. 3:06 PM [facility] DERMATOPATHOLOGY LABORATORY Gross Description Specimen A: Received is one formalin filled container labeled with the patient's name and designated right lat upper arm.The specimen consists of an ellipse measuring 61m13q0 mm and is oriented with the suture/notch at the 12 o'clock position labeled on the requisition. The 12 to 6 o'clock margin is inked green. The 6 o'clock to 12 o'clock margin is inked black. The 12 o'clock tip is submitted in cassette 1. The 6 o'clock tip is submitted in cassette 2. The remainder of the ellipse is serially sectioned and submitted in cassettes 3-4. Jar 0. 3:06 PM [facility] DERMATOPATHOLOGY LABORATORY Microscopic Description Specimen A. SKIN, right lat upper arm: Within the dermis there are aggregates of basaloid cells with a high nuclear to cytoplasmic ratio and peripheral palisading. This lesion is not present at the margin of the specimen. There are fibroblasts and collagen bundles oriented parallel to the skin surface with elongated blood vessels, some of which are oriented perpendicular to the skin surface. These scar-like changes are present at the 6 to 12 o'clock (black inked) margin of the specimen. 3:06 PM [facility] DERMATOPATHOLOGY LABORATORY Disclaimer An external and internal positive and negative controls are appropriate for the histochemical, immunohistochemical and immunofluorescence stain(s) in this case (if any), except where stated explicitly. The performance characteristics of the stain(s) cited in this report were developed and its performance characteristic determined by the Dermatopathology Laboratory at [facility], directed by Dr. Rachel Bazzi. These tests need not be, and therefore are not, approved by the [place] Food and Drug Administration. The tests are used for clinical purposes. Billing Codes Specimen Charges Stain Charges 07982 1 2 3:06 PM WAISTLINE JOINER OVERLOCK DERMATOPATHOLOGY LABORATORY Embedded Images 2 3:06 PM WAISTLINE JOINER OVERLOCK DERMATOPATHOLOGY LABORATORY Pathology/Cytolog y TISSUE SPECIMEN FROM SKIN / Unknown 05/23/2022 05/25/2022 6:04 AM WAISTLINE JOINER OVERLOCK Leopoldo Gallardo MD LAB - PATHOLOGY/CYTOLOGY ORDERAB LES Final Result DERMATOPATHOLOGY LABORATORY [facility] - Department of Dermatology [facility] Medicine [address] [place] [address], [address] [phone] documented in this encounter Visit Diagnoses Not on filedocumented in this encounter Care Teams Glaze Handler Relationship Specialty Start Date End Date Binh Trimble MD [address] [facility] [address] [place] [phone] PCP - General 03/07/13 documented as of this encounter
--- OUTSIDE RECORDS SUMMARY | 2024-10-11 07:08 | XMS_ITS | Encounter Summary ---
Author Organization [facility] Address [address] [place] [address] Care Team Providers Care System Admin Name Role Phone Binh Trimble MD Primary Care Provider [phone] Encounter Details Date Type Department Care Team (Late st Contact Info) Description 04/12/2022 Lab Requisition [facility] Care DermPath Lab [address] [place] [address] Leopoldo Gallardo MD [address] [place] [address] Social History Tobacco Use Types Packs/Day Years Used Date Smoking Tobacco: Never Smokeless Tobacco: Current Alcohol Use Standard Drinks/Week Comments No 0 (1 standard drink = 0.6 oz pur e alcohol) Sex and Gender Information Value Date Recorded Sex Assigned at Not on file 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 Gender Identity Not on file Sexual Orientation Not on file documented as of this encounter Plan of Treatment Not on file documented as of this encounter Procedures Procedure Name Priority Date/Time Associated Diagnosis Comments DERMATOPATHOLOGY Routine 04/12/2022 12:0 0 AM CDT documented in this encounter Results * DERMATOPATHOLOGY (04/12/2022 12:00 AM CDT) Case Report Dermatopathology Report Case: [id number] Authorizing Provider: Leopoldo Gallardo MD Collected: 04/12/2022 12:00 AM Ordering Location: [facility] Received: 04/12/2022 04:37 PM Pathologist: Blayne Bazzi MD Specimen: Skin, right lat upper arm 4:26 PM CDT DERMATOPATHOLOGY LABORATORY Final Diagnosis Specimen A. SKIN, right lat upper arm: BASAL CELL CARCINOMA, INFILTRATIVE PATTERN (C44.612) 4:26 PM CDT DERMATOPATHOLOGY LABORATORY Clinical History Nodule R/O Neoplasm 4:26 PM CDT DERMATOPATHOLOGY LABORATORY Gross Description Specimen A: Received is one formalin filled container labeled with the patient's name and designated right lat upper arm. The specimen consists of a shave biopsy measuring 07a19x7tw and it is bisected. Jar 0. 4:26 PM CDT DERMATOPATHOLOGY LABORATORY Microscopic Description Specimen A. SKIN, right lat upper arm: Within the dermis there are nodular aggregates of basaloid cells associated with fibromyxoid stroma and epithelial-stromal clefts. At the advancing margin of the neoplasm, there are smaller angulated nests that infiltrate the dermis. 4:26 PM CDT DERMATOPATHOLOGY LABORATORY Disclaimer An external and internal positive and negative controls are appropriate for the histochemical, immunohistochemical and immunofluorescence stain(s) in this case (if any), except where stated explicitly. The performance characteristics of the stain(s) cited in this report were developed and its performance characteristic determined by the Dermatopathology Laboratory at [facility], directed by Dr. Rachel Bazzi. These tests need not be, and therefore are not, approved by the [place] Food and Drug Administration. The tests are used for clinical purposes. Billing Codes Specimen Charges Stain Charges 71067 1 2 4:26 PM CDT DERMATOPATHOLOGY LABORATORY Embedded Images 4:26 PM CDT DERMATOPATHOLOGY LABORATORY Pathology/Cytolog y TISSUE SPECIMEN FROM SKIN / Unknown 04/12/2022 04/12/2022 4:37 PM CDT us Leopoldo Gallardo MD LAB - PATHOLOGY/CYTOLOGY ORDERAB LES Final Result DERMATOPATHOLOGY LABORATORY [facility] - Department of Dermatology [facility]ized Medicine [address] [facility], 3rd Floor [address] [phone] documented in this encounter Visit Diagnoses Not on filedocumented in this encounter Care Teams System Admin Relationship Specialty Start Date End Date Binh Trimble MD [address] [facility] [address] [place] [address] PCP - General 03/07/13 documented as of this encounter
--- OUTSIDE RECORDS SUMMARY | 2024-10-11 07:08 | XMS_ITS | Encounter Summary ---
Author Organization [facility] Address [address] [facility] [place] [address] Care Team Providers Care Sign Designer Name Role Phone Binh Trimble MD Primary Care Provider [phone] Encounter Details Date Type Department Care Team (Late st Contact Info) Description 12/12/2023 Lab Requisition [facility] - DermPath Lab [address] [facility], [place] [address] Leopoldo Gallardo MD [address] [place] [address] Social History Tobacco Use Types Packs/Day Years Used Date Smoking Tobacco: Never Smokeless Tobacco: Current Alcohol Use Standard Drinks/Week Comments No 0 (1 standard drink = 0.6 oz pur e alcohol) Sex and Gender Information Value Date Recorded Sex Assigned at Not on file 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 Gender Identity Not on file Sexual Orientation Not on file documented as of this encounter Plan of Treatment Not on file documented as of this encounter Procedures Procedure Name Priority Date/Time Associated Diagnosis Comments DERMATOPATHOLOGY Routine 12/11/2023 12:0 0 AM CDT documented in this encounter Results * DERMATOPATHOLOGY (12/11/2023 12:00 AM CDT) Case Report Dermatopathology Report Case: [id number] Authorizing Provider: Leopoldo Gallardo MD Collected: 12/11/2023 12:00 AM Ordering Location: [facility] - Received: 12/12/2023 07:05 AM DermPath Lab Pathologist: Amie Vega MD Specimens: A) - Skin, right post shoulder med B) - Skin, right post shoulder lat 12:53 PM T DERMATOPATHOLOGY LABORATORY Final Diagnosis Specimen A. SKIN, right post shoulder med: BASAL CELL CARCINOMA, NODULAR TYPE (C44.612) Specimen B. SKIN, right post shoulder lat: BASAL CELL CARCINOMA, SUPERFICIAL MULTIFOCAL (C44.612) 12:53 PM T DERMATOPATHOLOGY LABORATORY Clinical History A-B: BCC 12:53 PM CDT DERMATOPATHOLOGY LABORATORY Gross Description Specimen A: Received is one formalin filled container labeled with the patient's name and designated right post shoulder med. The specimen consists of a shave biopsy measuring 42x17e8 mm. Jar 0. Specimen B: Received is one formalin filled container labeled with the patient's name and designated right post shoulder lat. The specimen consists of a shave biopsy measuring 11x8x1 mm. Jar 0. 12:53 PM CDT DERMATOPATHOLOGY LABORATORY Microscopic Description Specimen A. SKIN, right post shoulder med: Within the dermis there are aggregates of basaloid cells with a high nuclear to cytoplasmic ratio and peripheral palisading. Specimen B. SKIN, right post shoulder lat: Attached to the undersurface of the epidermis, there are small aggregates of basaloid cells with a high nuclear to cytoplasmic ratio and peripheral palisading. 12:53 PM CDT DERMATOPATHOLOGY LABORATORY Disclaimer An external and internal positive and negative controls are appropriate for the histochemical, immunohistochemical and immunofluorescence stain(s) in this case (if any), except where stated explicitly. The performance characteristics of the stain(s) cited in this report were developed and its performance characteristic determined by the Dermatopathology Laboratory at [facility], directed by Dr. Rachel Bazzi. These tests need not be, and therefore are not, approved by the [place] Food and Drug Administration. The tests are used for clinical purposes. Billing Codes Specimen Charges Stain Charges 54752 28746 1 1 07/03/202 4 12:53 PM CDT DERMATOPATHOLOGY LABORATORY Embedded Images 12:53 PM CDT DERMATOPATHOLOGY LABORATORY Pathology/Cytology TISSUE SPECIMEN FROM SKIN / Unknown 12/11/2023 12/12/2023 7:05 AM CDT Miscellaneous samples (specimen) TISSUE SPECIMEN FROM SKIN / Unknown 12/11/2023 12/12/2023 7:05 AM CDT Leopoldo Gallardo MD LAB - PATHOLOGY/CYTOLOGY ORDERAB LES Final Result DERMATOPATHOLOGY LABORATORY [facility] - Department of Dermatology [facility] Specialized Medicine [address] [place] [address], [address] [phone] documented in this encounter Visit Diagnoses Not on filedocumented in this encounter Care Teams Sign Designer Relationship Specialty Start Date End Date Binh Trimble MD [address] [facility] [address] [place] [phone] PCP - General 03/07/13 documented as of this encounter
--- OUTSIDE RECORDS SUMMARY | 2024-10-11 07:08 | XMS_ITS | Encounter Summary ---
Author Organization [facility] Address [address] [place] [address] Care Team Providers Care Bandoleer Straightener Stamper Name Role Phone Binh Trimble MD Primary Care Provider Encounter Details Date Type Department Care Team (Late st Contact Info) Description 08/29/2022 Lab Requisition [facility] [address] [place] [address] Leopoldo Gallardo MD [address] [place] [address] Social History Tobacco Use Types Packs/Day Years Used Date Smoking Tobacco: Never Smokeless Tobacco: Current Alcohol Use Standard Drinks/Week Comments No 0 (1 standard drink = 0.6 oz pur e alcohol) Sex and Gender Information Value Date Recorded Sex Assigned at Not on file 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 Gender Identity Not on file Sexual Orientation Not on file documented as of this encounter Plan of Treatment Not on file documented as of this encounter Procedures Procedure Name Priority Date/Time Associated Diagnosis Comments DERMATOPATHOLOGY Routine 08/29/2022 12:0 0 AM CDT documented in this encounter Results * DERMATOPATHOLOGY (08/29/2022 12:00 AM CDT) Case Report Dermatopathology Report Case: [id number] Authorizing Provider: Leopoldo Gallardo MD Collected: 08/29/2022 12:00 AM Ordering Location: [facility] Received: 08/29/2022 02:50 PM Pathologist: Amie Vega MD Specimens: A) - Skin, right lateral upper arm B) - Skin, right face 1:03 PM [facility] DERMATOPATHOLOGY LABORATORY Final Diagnosis Specimen A. SKIN, right lateral upper arm: GRANULATION TISSUE (L92.9) PRESENT AT MARGIN Specimen B. SKIN, right face: SEBORRHEIC KERATOSIS, INFLAMED (L82.0) PRESENT AT MARGIN 1:03 PM [facility] DERMATOPATHOLOGY LABORATORY Clinical History A: Granulation Tissue. Please Check Margins. B: R/O Neoplasia. Please Check Margins. 1:03 PM [facility] DERMATOPATHOLOGY LABORATORY Gross Description Specimen A: Received is one formalin filled container labeled with the patient's name and designated right lateral upper arm. The specimen consists of a shave biopsy measuring 9r9p4qv and another piece of tissue measuring 47b1t0or that is inked. Jar 0. Specimen B: Received is one formalin filled container labeled with the patient's name and designated right face. The specimen consists of a shave biopsy measuring 9g3w8lb and it is inked. Jar 0. 1:03 PM [facility] DERMATOPATHOLOGY LABORATORY Microscopic Description Specimen A. SKIN, right lateral upper arm: Sections show edema, an increased number of thin-walled vessels and a prominent mixed inflammatory infiltrate. This lesion is present at the margin of the specimen. Specimen B. SKIN, right face: There is hyperkeratosis, parakeratosis, papillomatosis, and acanthosis of the epidermis. There is a lymphohistiocytic infiltrate within the papillary dermis that is focally lichenoid. This lesion is present at the margin of the specimen. 1:03 PM [facility] DERMATOPATHOLOGY LABORATORY Disclaimer An external and internal positive and negative controls are appropriate for the histochemical, immunohistochemical and immunofluorescence stain(s) in this case (if any), except where stated explicitly. The performance characteristics of the stain(s) cited in this report were developed and its performance characteristic determined by the Dermatopathology Laboratory at [facility], directed by Dr. Rachel Bazzi. These tests need not be, and therefore are not, approved by the [place] Food and Drug Administration. The tests are used for clinical purposes. Billing Codes Specimen Charges Stain Charges 39006 42245 1 1 3 1:03 PM CDT DERMATOPATHOLOGY LABORATORY Embedded Images 3 1:03 PM CDT DERMATOPATHOLOGY LABORATORY Pathology/Cytology TISSUE SPECIMEN FROM SKIN / Unknown 08/29/2022 08/29/2022 2:50 PM CDT Miscellaneous samples (specimen) TISSUE SPECIMEN FROM SKIN / Unknown 08/29/2022 08/29/2022 2:50 PM CDT us Leopoldo Gallardo MD LAB - PATHOLOGY/CYTOLOGY ORDERAB LES Final Result Performing Organization Address City/State/[facility] Co de Phone Number DERMATOPATHOLOGY LABORATORY [facility] - Department of Dermatology [facility] Medicine [address] [place] [address], [address] [phone] documented in this encounter Visit Diagnoses Not on filedocumented in this encounter Care Teams Bandoleer Straightener Stamper Relationship Specialty Start Date End Date Binh Trimble MD [address] [facility] [address] [place] [address] PCP - General 03/07/13 documented as of this encounter
[2024-10-11 07:40] LABS: Hematocrit 45.7 % (42.0-52.0); Hemoglobin 14.9 g/dL (14.0-18.0); Mean Corpuscular HGB Conc 32.6 g/dl (32-36); Mean Corpuscular Hemoglobin 29.7 pg (26-34); Mean Corpuscular Volume 91.2 fl (80-100); Mean Platelet Volume 9.9 fl (7.4-10.4); Platelet Count Result 217 k/mm3 (150-375); Red Blood Count 5.01 M/mm3 (4.6-6.20); Red Cell Distribution Width 13.5 % (11.5-14.5); White Blood Count 6.7 K/mm3 (4.5-10.0)
[2024-10-11 08:01] LABS: Hemoglobin A1C 7.4 % (<5.7)
[2024-10-11 08:06] LABS: Alanine Aminotransferase 46 U/L (6-50); Albumin Level 4.2 g/dL (3.5-5.1); Alkaline Phosphatase 103 U/L (38-126); Anion Gap 7 mmol/L (4-12); Aspartate Amino Transferase 41 U/L (17-59); Bilirubin,Total 0.4 mg/dL (0.2-1.3); Blood Urea Nitrogen 17 mg/dL (9-20); Calcium 9.5 mg/dL (8.4-10.2); Carbon Dioxide 26 mmol/L (22-30); Chloride 105 mmol/L (98-107); Estimated Glomerular Filt Rate > 60; Glucose 225 mg/dL (65-110); Potassium 4.5 mmol/L (3.4-5.0); Sodium 138 mmol/L (137-145)
[2024-10-11 08:36] LABS: Prostate Specific Antigen 2.1 ng/mL (< OR = 4.0)
[2024-10-11 08:55] LABS: Creatinine Urine 66.7 mg/dL
[2024-10-11 09:01] LABS: MALB Creatinine Ratio < 9.0 mg/g (0-30); Microalbumin Urine Random < 6.0 mg/L (0-16.7)
[2024-10-11 09:12] LABS: Vitamin D 25 Hydroxy 35.4 ng/mL
== END 2024-10-11 07:05 | disposition home or self-care (01) ==
PROVIDERS: PCP Family Medicine; Visit Provider Family Medicine
DX: E11.65 Type 2 diabetes mellitus with hyperglycemia (principal); Z68.29 Body mass index [BMI] 29.0-29.9, adult; I10 Essential (primary) hypertension; D64.9 Anemia, unspecified; Z79.4 Long term (current) use of insulin; N40.0 Benign prostatic hyperplasia without lower urinary tract symptoms; Z12.5 Encounter for screening for malignant neoplasm of prostate
CPT/HCPCS: 36415; 80053; 82043; 82306; 82607; 83036; 84153; 85027; G0103

== ENCOUNTER 2025-04-26 07:09 | Outpatient (CLI) | payer MEDICARE, SELFPAY ==
[2025-04-26 07:36] LABS: Hematocrit 44.4 % (42.0-52.0); Hemoglobin 14.7 g/dL (14.0-18.0); Immature Granulocyte Percent A 0.3 % (0-0.5); Lymphocytes Absolute Auto 1.93 K/mm3 (0.9-3.2); Mean Corpuscular HGB Conc 33.1 g/dl (32-36); Mean Corpuscular Hemoglobin 30.2 pg (26-34); Mean Corpuscular Volume 91.4 fl (80-100); Nucleated Red Blood Cells Absolute Auto 0.000 K/mm3 (0.0-0.012); Nucleated Red Blood Cells Perc 0.0 % (0.0-0.2); Platelet Count Result 228 k/mm3 (150-375); Red Blood Count 4.86 M/mm3 (4.6-6.20); White Blood Count 7.2 K/mm3 (4.5-10.0)
[2025-04-26 07:49] LABS: Hemoglobin A1C 7.0 % (<5.7)
[2025-04-26 08:02] LABS: Alanine Aminotransferase 28 U/L (6-50); Albumin Level 4.2 g/dL (3.5-5.1); Alkaline Phosphatase 82 U/L (38-126); Anion Gap 8 mmol/L (4-12); Aspartate Amino Transferase 38 U/L (17-59); Bilirubin,Total 0.5 mg/dL (0.2-1.3); Blood Urea Nitrogen 18 mg/dL (9-20); Calcium 9.3 mg/dL (8.4-10.2); Carbon Dioxide 23 mmol/L (22-30); Chloride 106 mmol/L (98-107); Estimated Glomerular Filt Rate > 60; Glucose 189 mg/dL (65-110); Magnesium 2.1 mg/dL (1.6-2.3); Potassium 3.9 mmol/L (3.4-5.0); Sodium 137 mmol/L (137-145); Total Protein 7.0 g/dL (6.3-8.2)
[2025-04-26 08:38] LABS: Thyroid Stimulating Hormone 4.780 uIU/mL (0.465-4.680)
[2025-04-26 08:57] LABS: Vitamin B12 697.0 pg/mL (239-931)
[2025-04-26 10:09] LABS: MALB Creatinine Ratio 8.1 mg/g (0-30)
== END 2025-04-26 07:10 | disposition home or self-care (01) ==
PROVIDERS: PCP Family Medicine; Visit Provider Family Medicine
DX: E78.2 Mixed hyperlipidemia (principal); I10 Essential (primary) hypertension; E11.65 Type 2 diabetes mellitus with hyperglycemia; Z79.4 Long term (current) use of insulin; D64.9 Anemia, unspecified; Z00.00 Encounter for general adult medical examination without abnormal findings; Z79.899 Other long term (current) drug therapy
CPT/HCPCS: 36415; 80053; 82043; 82306; 82607; 83036; 83735; 84436; 84443; 85025